=== PATIENT | female | born 1965 | race Caucasian/White ===

== ENCOUNTER → 2017-05-18 | Outpatient (CLI) | payer OTHER ==
[~2017-05-18] MED LIST: BACTRIM DS 8001 TA1 PO; LEVOTHYROXIN0.075 M1 PO; NEXIUM40 MG PO; NORCO 325 MG-51 TAB PO; TOPAMAX25 M1 PO; ULTRAM50 MG PO
[2017-05-18 17:07] LABS: FREE T4 1.24 ng/dl (0.76-1.46)
[2017-05-18 17:12] LABS: THYROID STIM HORMONE (HS) 0.968 uIU/ml (0.358-4.75)
== END | disposition home or self-care (01) ==
LOC: US 05-14 11:00 → LAB 15:54 → US 16:00
PROVIDERS: Internal Medicine Endocrinology, Diabetes & Metabolism
DX: E04.2 Nontoxic multinodular goiter (principal); R63.5 Abnormal weight gain; E89.0 Postprocedural hypothyroidism

== ENCOUNTER 2018-07-15 18:24 | Emergency (ER) | payer OTHER ==
[~2018-07-15] VITALS: Ht 154.9 cm; Wt 77.1 kg
[2018-07-15 18:25] VITALS: BP 165/91
[2018-07-15] MEDS ORDERED: PREDNISONE10 MG PO (18:31)
== END 2018-07-15 19:40 | disposition home or self-care (01) ==
LOC: ED 18:24
DX: M77.9 Enthesopathy, unspecified (principal); M79.631 Pain in right forearm; R03.0 Elevated blood-pressure reading, without diagnosis of hypertension

== ENCOUNTER 2018-07-27 15:07 | Emergency (ER) | payer OTHER ==
[~2018-07-27] VITALS: Ht 154.9 cm; Wt 81.6 kg
--- NOTE | ~2018-07-27 | EKG ---
[place], [place] ELECTROCARDIOGRAM REPORT NAME: VIKI PICKARD UNIT #: [id number] ROOM: DOCTOR: EPIPHANY DRAFT REPORT BIRTHDATE: [birth year] [facility] Test Date: 2018-07-27 Test Time: 15:28:07 Pat Name: VIKI PICKARD Department: Room: Gender: F Filler Mixer: ETHEL : 1965 Requested By: ROBER KENNEDY PA-C Order Number: [id number] Reading MD: Jose Pimentel MD Measurements Intervals [place] Rate: 83 P: 60 FL: 157 QRS: 11 QRSD: 78 T: 39 QT: 373 QTc: 439 Interpretive Statements Sinus rhythm Low voltage, precordial leads Baseline wander in lead(s) II,III,aVF,V4,V5 Electronically Signed On 07-27-2018 20:17:15 PST by Jose Pimentel MD CM:EKGRPT:ELECTROCARDIOGRAM REPORT [id number] ROBER KENNEDY PA-C EPIPHANY DRAFT REPORT ROBER KENNEDY PA-C
[~2018-07-27 15:07] MED LIST changes: +PREDNISONE10 MG PO
[2018-07-27 15:09] VITALS: BP 153/83
[2018-07-27 15:42] LABS: BASO # 0.1 10*3/uL (0.0-0.1); BASO % 0.7 % (0.0-1.0); EOS # 0.1 10*3/uL (0.0-0.4); EOS % 1.2 % (1.0-4.0); HEMATOCRIT 45.1 % (37.0-47.0); HEMOGLOBIN 15.4 g/dl (12.0-16.0); LYMPH # 2.3 10*3/uL (1.3-4.4); LYMPH % 29.8 % (27.0-41.0); MEAN CELL VOLUME 86.7 fl (81.0-99.0); MEAN CORPUSCULAR HGB 29.6 pg (27.0-31.0); MEAN CORPUSCULAR HGB CONC 34.1 g/dl (33.0-37.0); MEAN PLATELET VOLUME 11.5 fl (9.6-12.3); MONO # 0.5 10*3/uL (0.1-1.0); MONO % 7.1 % (3.0-9.0); NEUT # 4.6 10*3/uL (2.3-7.9); NEUT % 60.9 % (47.0-73.0); PLATELET COUNT AUTOMATED 204 10*3/uL (130-400); RED CELL DISTRI WIDTH 13.6 % (0-14.5); WHITE BLOOD COUNT 7.6 10*3/uL (4.8-10.8)
[2018-07-27 15:51] LABS: ACT PARTIAL THROMBO TIME 24.3 SECONDS (20.8-31.5)
[2018-07-27 16:03] LABS: BILIRUBIN NEGATIVE (NEGATIVE); BLOOD TRACE-INTACT (NEGATIVE); CLARITY CLEAR (CLEAR); COLOR YELLOW (YELLOW); GLUCOSE NEGATIVE (NEGATIVE); KETONE NEGATIVE (NEGATIVE); LEUKO ESTERASE NEGATIVE (NEGATIVE); NITRITE NEGATIVE (NEGATIVE); PH 7.5 (5.0-9.0); UROBILINOGEN 0.2 E.U./dl (0.2-1.0)
[2018-07-27 16:04] LABS: ALBUMIN 3.6 gm/dl (3.1-4.5); ALKALINE PHOSPHATASE 33 U/L (45-117); BUN 11 mg/dl (7-24); CHLORIDE 105 mmol/L (98-107); CREATININE 0.94 mg/dL (0.55-1.02); FREE T4 1.29 ng/dl (0.76-1.46); POTASSIUM 3.9 mmol/L (3.5-5.1); SGOT/AST 11 IU/L (3-35); SGPT/ALT 19 U/L (12-78); SODIUM 139 mmol/L (136-145); TOTAL PROTEIN 6.9 gm/dL (6.4-8.2)
[2018-07-27 16:10] LABS: TROPONIN I < 0.015 ng/ml (<0.045)
[2018-07-27 16:12] LABS: URINE AMPHETAMINES < 1000 (1000ng/ml); URINE BARBITURATES < 200 (200ng/ml); URINE BENZODIAZEPINES < 200 (200ng/ml); URINE CANNABINOIDS (THC) < 50 (50ng/ml); URINE COCAINE < 300 (300ng/ml); URINE METHADONE < 300 (300ng/ml); URINE OPIATES < 300 (300ng/ml)
[2018-07-27 16:17] LABS: URINE PHENCYCLIDINE < 25 (25ng/ml)
[2018-07-27 16:25] LABS: BACTERIA 3+; WBC 0-2 wbc/hpf (0-5)
== END 2018-07-27 17:45 | disposition home or self-care (01) ==
LOC: ED 15:07
PROVIDERS: Physician Assistant
DX: R00.2 Palpitations (principal); R42 Dizziness and giddiness; R07.0 Pain in throat; R03.0 Elevated blood-pressure reading, without diagnosis of hypertension; R53.83 Other fatigue; R79.1 Abnormal coagulation profile; E03.9 Hypothyroidism, unspecified; G43.909 Migraine, unspecified, not intractable, without status migrainosus; Z79.899 Other long term (current) drug therapy; Z90.89 Acquired absence of other organs

== ENCOUNTER → 2018-08-16 | Outpatient (CLI) | payer OTHER | LOC: RAD 16:22 | DX: Z12.31 Encounter for screening mammogram for malignant neoplasm of breast (principal) ==

== ENCOUNTER → 2018-08-31 | Outpatient (CLI) | payer OTHER ==
[2018-08-31 11:28] LABS: HEMATOCRIT 42.8 % (37.0-47.0); HEMOGLOBIN 14.8 g/dl (12.0-16.0); MEAN CELL VOLUME 86.1 fl (81.0-99.0); MEAN CORPUSCULAR HGB 29.8 pg (27.0-31.0); MEAN CORPUSCULAR HGB CONC 34.6 g/dl (33.0-37.0); MEAN PLATELET VOLUME 11.8 fl (9.6-12.3); RED BLOOD COUNT 4.97 10*6/uL (4.10-5.10); RED CELL DISTRI WIDTH 12.9 % (0-14.5); WHITE BLOOD COUNT 5.9 10*3/uL (4.8-10.8)
[2018-08-31 11:55] LABS: ALBUMIN 3.6 gm/dl (3.1-4.5); ALKALINE PHOSPHATASE 31 U/L (45-117); BUN 10 mg/dl (7-24); CHLORIDE 107 mmol/L (98-107); CHOLESTEROL 173 mg/dL (<200); CREATININE 0.91 mg/dL (0.55-1.02); HDL CHOLESTEROL 50 mg/dl (40-60); LDL CHOLESTEROL 92 mg/dL (9-159); POTASSIUM 3.9 mmol/L (3.5-5.1); SGOT/AST 12 IU/L (3-35); SGPT/ALT 15 U/L (12-78); SODIUM 142 mmol/L (136-145); TOTAL PROTEIN 7.2 gm/dL (6.4-8.2); TRIGLYCERIDES 153 mg/dl (<150); VLDL CHOLESTEROL 31 mg/dL (6-40)
[2018-08-31 12:17] LABS: FREE T4 1.43 ng/dl (0.76-1.46)
[2018-08-31 12:44] LABS: VITAMIN D, 25-HYDROXY 68.5 ng/mL (30-100)
== END | disposition home or self-care (01) ==
LOC: LAB 10:55 → MAMMO 11:30
PROVIDERS: Physician Assistant
DX: R92.2 Inconclusive mammogram (principal); E03.9 Hypothyroidism, unspecified; E53.9 Vitamin B deficiency, unspecified; E55.9 Vitamin D deficiency, unspecified

== ENCOUNTER → 2018-09-29 | Outpatient (CLI) | payer OTHER | END | disposition home or self-care (01) | LOC: RAD 17:04 | DX: M79.601 Pain in right arm (principal) ==

== ENCOUNTER → 2018-10-04 | Outpatient (CLI) | payer OTHER | END | disposition home or self-care (01) | LOC: US 12:01 → RAD 13:00 | DX: M79.601 Pain in right arm (principal); E04.1 Nontoxic single thyroid nodule; R92.8 Other abnormal and inconclusive findings on diagnostic imaging of breast ==

== ENCOUNTER → 2018-10-20 | Day surgery (SDC) | payer OTHER | END | disposition home or self-care (01) | LOC: SDC 03:21 | PROVIDERS: Internal Medicine Endocrinology, Diabetes & Metabolism | DX: E04.2 Nontoxic multinodular goiter (principal); Z98.890 Other specified postprocedural states; Z79.899 Other long term (current) drug therapy; Z80.41 Family history of malignant neoplasm of ovary ==

== ENCOUNTER → 2019-04-20 | Outpatient (CLI) | payer OTHER | END | disposition home or self-care (01) | LOC: US 10:00 | DX: E04.1 Nontoxic single thyroid nodule (principal); E89.0 Postprocedural hypothyroidism ==

== ENCOUNTER → 2019-09-18 | Outpatient (CLI) | payer OTHER | END | disposition home or self-care (01) | LOC: US 14:41 | DX: E04.1 Nontoxic single thyroid nodule (principal) ==

== ENCOUNTER → 2020-04-16 | Outpatient (CLI) | payer OTHER | END | disposition home or self-care (01) | LOC: RAD 14:36 | DX: M25.612 Stiffness of left shoulder, not elsewhere classified (principal); M25.512 Pain in left shoulder ==

== ENCOUNTER → 2020-07-03 | Outpatient (CLI) | payer OTHER | END | disposition home or self-care (01) | LOC: MAMMO 12:50 | PROVIDERS: ATTEND Nurse Practitioner Women's Health | DX: D24.9 Benign neoplasm of unspecified breast (principal); N63.10 Unspecified lump in the right breast, unspecified quadrant; R92.2 Inconclusive mammogram ==

== ENCOUNTER → 2020-08-21 | Outpatient (CLI) | payer OTHER | END | disposition home or self-care (01) | LOC: RAD 00:28 | PROVIDERS: ATTEND Internal Medicine Endocrinology, Diabetes & Metabolism | DX: Z13.820 Encounter for screening for osteoporosis (principal); E04.2 Nontoxic multinodular goiter; M85.869 Other specified disorders of bone density and structure, unspecified lower leg; Z78.0 Asymptomatic menopausal state ==

== ENCOUNTER → 2020-10-21 | Outpatient (CLI) | payer OTHER | END | disposition home or self-care (01) | LOC: RAD 14:55 | PROVIDERS: ATTEND Nurse Practitioner Family | DX: M25.551 Pain in right hip (principal) ==

== ENCOUNTER → 2021-07-08 | Outpatient (CLI) | payer OTHER | END | disposition home or self-care (01) | LOC: US 06-17 14:00 → MAMMO 06-17 14:00 → US 06-17 14:30 → MAMMO 13:00 | PROVIDERS: ATTEND Nurse Practitioner Women's Health | DX: N64.4 Mastodynia (principal); D24.1 Benign neoplasm of right breast ==

== ENCOUNTER → 2021-08-11 | Outpatient (CLI) | payer OTHER | END | disposition home or self-care (01) | LOC: US 16:00 | PROVIDERS: ATTEND Internal Medicine Endocrinology, Diabetes & Metabolism | DX: E04.2 Nontoxic multinodular goiter (principal) ==

== ENCOUNTER → 2022-06-15 | Outpatient (CLI) | payer OTHER | END | disposition home or self-care (01) | LOC: RAD 16:46 | PROVIDERS: ATTEND Nurse Practitioner Family | DX: M43.8X6 Other specified deforming dorsopathies, lumbar region (principal); M47.817 Spondylosis without myelopathy or radiculopathy, lumbosacral region; M51.34 Other intervertebral disc degeneration, thoracic region; M48.061 Spinal stenosis, lumbar region without neurogenic claudication; G43.919 Migraine, unspecified, intractable, without status migrainosus; K59.00 Constipation, unspecified; Z90.49 Acquired absence of other specified parts of digestive tract ==

== ENCOUNTER → 2022-10-05 | Outpatient (CLI) | payer OTHER | END | disposition home or self-care (01) | LOC: RAD 09-04 10:30 | PROVIDERS: ATTEND Nurse Practitioner Family | DX: Z13.820 Encounter for screening for osteoporosis (principal); M85.89 Other specified disorders of bone density and structure, multiple sites ==

== ENCOUNTER → 2022-10-07 | Outpatient (CLI) | payer OTHER | END | disposition home or self-care (01) | LOC: MAMMO 02:34 → US 09:30 | PROVIDERS: ATTEND Nurse Practitioner Family | DX: Z12.31 Encounter for screening mammogram for malignant neoplasm of breast (principal); E04.2 Nontoxic multinodular goiter; N64.1 Fat necrosis of breast ==

== ENCOUNTER → 2023-04-22 | Outpatient (CLI) | payer OTHER | END | disposition home or self-care (01) | LOC: CARD 15:40 | PROVIDERS: ATTEND Nurse Practitioner Family | DX: R03.0 Elevated blood-pressure reading, without diagnosis of hypertension (principal); R00.2 Palpitations ==

== ENCOUNTER → 2023-05-19 | Outpatient (CLI) | payer OTHER ==
[2023-05-19 16:21] LABS: BASO # 0.1 10*3/uL (0.0-0.1); BASO % 0.8 % (0.0-1.0); EOS # 0.1 10*3/uL (0.0-0.4); EOS % 1.4 % (1.0-4.0); HEMATOCRIT 42.8 % (37.0-47.0); LYMPH # 1.9 10*3/uL (1.3-4.4); LYMPH % 31.8 % (27.0-41.0); MEAN CELL VOLUME 84.6 fl (81.0-99.0); MEAN CORPUSCULAR HGB 28.9 pg (27.0-31.0); MEAN CORPUSCULAR HGB CONC 34.1 g/dl (33.0-37.0); MEAN PLATELET VOLUME 11.5 fl (9.6-12.3); MONO # 0.5 10*3/uL (0.1-1.0); MONO % 8.3 % (3.0-9.0); NEUT # 3.4 10*3/uL (2.3-7.9); NEUT % 57.5 % (47.0-73.0); PLATELET COUNT AUTOMATED 234 10*3/uL (130-400); RED BLOOD COUNT 5.06 10*6/uL (4.10-5.10); RED CELL DISTRI WIDTH 13.5 % (0-14.5); WHITE BLOOD COUNT 5.9 10*3/uL (4.8-10.8)
== END | disposition home or self-care (01) ==
LOC: LAB 16:04
PROVIDERS: ATTEND Nurse Practitioner Family
DX: Z51.81 Encounter for therapeutic drug level monitoring (principal); E89.0 Postprocedural hypothyroidism; M54.81 Occipital neuralgia; G43.919 Migraine, unspecified, intractable, without status migrainosus; R13.10 Dysphagia, unspecified

== ENCOUNTER → 2023-06-01 | Outpatient (CLI) | payer OTHER | END | disposition home or self-care (01) | LOC: RAD/SH 04-22 01:22 | PROVIDERS: ATTEND Nurse Practitioner Family | DX: R13.10 Dysphagia, unspecified (principal) ==

== ENCOUNTER → 2023-09-17 | Outpatient (CLI) | payer OTHER ==
[~2023-09-17] MED LIST changes: -LEVOTHYROXIN0.075 M1 PO; +LEVOTHYROXINE50 MCG PO; +PROPRANOLOL HYD10 MG PO
[2023-09-17 10:10] LABS: BASO % 0.8 % (0.0-1.0); EOS # 0.1 10*3/uL (0.0-0.4); EOS % 1.5 % (1.0-4.0); HEMATOCRIT 43.6 % (37.0-47.0); LYMPH # 1.5 10*3/uL (1.3-4.4); LYMPH % 28.4 % (27.0-41.0); MEAN CORPUSCULAR HGB 28.9 pg (27.0-31.0); MEAN CORPUSCULAR HGB CONC 33.3 g/dl (33.0-37.0); MEAN PLATELET VOLUME 11.7 fl (9.6-12.3); MONO # 0.4 10*3/uL (0.1-1.0); MONO % 8.3 % (3.0-9.0); NEUT # 3.2 10*3/uL (2.3-7.9); NEUT % 60.8 % (47.0-73.0); PLATELET COUNT AUTOMATED 220 10*3/uL (130-400); RED BLOOD COUNT 5.01 10*6/uL (4.10-5.10); RED CELL DISTRI WIDTH 13.2 % (0-14.5); WHITE BLOOD COUNT 5.3 10*3/uL (4.8-10.8)
[2023-09-17 11:05] LABS: ALKALINE PHOSPHATASE 30 U/L (46-116); BUN 13 mg/dl (9-23); CHLORIDE 108 mmol/L (98-107); CHOLESTEROL 200 mg/dL (<200); LDL CHOLESTEROL 125 mg/dL (9-159); POTASSIUM 4.2 mmol/L (3.4-5.1); SGPT/ALT 13 U/L (5-49); TOTAL PROTEIN 6.8 gm/dL (6.0-8.0); TRIGLYCERIDES 114 mg/dl (<150)
== END | disposition home or self-care (01) ==
LOC: LAB 09:56
PROVIDERS: ATTEND Nurse Practitioner Family
DX: E78.1 Pure hyperglyceridemia (principal); R00.2 Palpitations; E03.9 Hypothyroidism, unspecified

== ENCOUNTER → 2023-10-11 | Outpatient (CLI) | payer OTHER | LOC: MAMMO 00:25 | PROVIDERS: ATTEND Nurse Practitioner Family | DX: Z12.31 Encounter for screening mammogram for malignant neoplasm of breast (principal); R92.323 Mammographic fibroglandular density, bilateral breasts ==

== ENCOUNTER → 2023-11-23 | Outpatient (CLI) | payer OTHER ==
[2023-11-23 07:33] LABS: BASO # 0.1 10*3/uL (0.0-0.1); BASO % 1.1 % (0.0-1.0); EOS # 0.1 10*3/uL (0.0-0.4); EOS % 2.1 % (1.0-4.0); HEMATOCRIT 44.3 % (37.0-47.0); LYMPH # 1.5 10*3/uL (1.3-4.4); LYMPH % 28.4 % (27.0-41.0); MEAN CELL VOLUME 84.9 fl (81.0-99.0); MEAN CORPUSCULAR HGB 28.7 pg (27.0-31.0); MEAN CORPUSCULAR HGB CONC 33.9 g/dl (33.0-37.0); MEAN PLATELET VOLUME 11.6 fl (9.6-12.3); MONO # 0.5 10*3/uL (0.1-1.0); MONO % 8.4 % (3.0-9.0); NEUT # 3.2 10*3/uL (2.3-7.9); NEUT % 59.8 % (47.0-73.0); PLATELET COUNT AUTOMATED 215 10*3/uL (130-400); RED BLOOD COUNT 5.22 10*6/uL (4.10-5.10); RED CELL DISTRI WIDTH 13.3 % (0-14.5); WHITE BLOOD COUNT 5.4 10*3/uL (4.8-10.8)
[2023-11-23 08:07] LABS: ALKALINE PHOSPHATASE 35 U/L (46-116); BUN 16 mg/dl (9-23); CHLORIDE 106 mmol/L (98-107); CHOLESTEROL 219 mg/dL (<200); LDL CHOLESTEROL 144 mg/dL (9-159); POTASSIUM 3.8 mmol/L (3.4-5.1); SGPT/ALT 11 U/L (5-49); TRIGLYCERIDES 131 mg/dl (<150)
== END | disposition home or self-care (01) ==
LOC: LAB 07:02
PROVIDERS: ATTEND Nurse Practitioner Family
DX: Z12.31 Encounter for screening mammogram for malignant neoplasm of breast (principal); R63.5 Abnormal weight gain; E03.9 Hypothyroidism, unspecified; G43.909 Migraine, unspecified, not intractable, without status migrainosus

== ENCOUNTER → 2024-01-25 | Outpatient (CLI) | payer OTHER | END | disposition home or self-care (01) | LOC: LAB 15:43 | PROVIDERS: ATTEND Nurse Practitioner Family | DX: I10 Essential (primary) hypertension (principal); R19.5 Other fecal abnormalities; Z80.41 Family history of malignant neoplasm of ovary; Z80.0 Family history of malignant neoplasm of digestive organs ==

== ENCOUNTER → 2024-04-17 | Outpatient (CLI) | payer OTHER ==
[2024-04-17 16:11] LABS: POTASSIUM 3.1 mmol/L (3.4-5.1)
== END | disposition home or self-care (01) ==
LOC: LAB 15:13
PROVIDERS: ATTEND Nurse Practitioner Family
DX: I10 Essential (primary) hypertension (principal)

== ENCOUNTER → 2024-04-18 | Outpatient (CLI) | payer OTHER ==
[2024-04-18 17:27] LABS: BILIRUBIN Negative (Negative); BLOOD 1+ (Negative); CLARITY Clear (Clear); COLOR Yellow (Yellow); GLUCOSE Negative (Negative); KETONE Negative (Negative); LEUKO ESTERASE 2+ (Negative); NITRITE Negative (Negative); SPECIFIC GRAVITY <= 1.005 (1.001-1.030)
[2024-04-18 17:56] LABS: BACTERIA TRACE; RBC 0-2 rbc/hpf (0-2); WBC 31-40 wbc/hpf (0-5)
== END | disposition home or self-care (01) ==
LOC: LAB 17:01
PROVIDERS: ATTEND Nurse Practitioner Family
DX: I10 Essential (primary) hypertension (principal); R30.0 Dysuria; R79.89 Other specified abnormal findings of blood chemistry

== ENCOUNTER → 2024-04-25 | Outpatient (CLI) | payer OTHER ==
[2024-04-25 17:24] LABS: POTASSIUM 3.7 mmol/L (3.4-5.1)
== END | disposition home or self-care (01) ==
LOC: LAB 16:49
PROVIDERS: ATTEND Nurse Practitioner Family
DX: R30.0 Dysuria (principal); R79.89 Other specified abnormal findings of blood chemistry; I10 Essential (primary) hypertension

== ENCOUNTER → 2024-05-03 | Outpatient (CLI) | payer OTHER ==
[2024-05-03 16:03] LABS: BASO # 0.1 10*3/uL (0.0-0.1); EOS # 0.1 10*3/uL (0.0-0.4); EOS % 1.4 % (1.0-4.0); HEMATOCRIT 39.1 % (37.0-47.0); LYMPH # 1.9 10*3/uL (1.3-4.4); LYMPH % 33.8 % (27.0-41.0); MEAN CELL VOLUME 88.3 fl (81.0-99.0); MEAN CORPUSCULAR HGB 30.2 pg (27.0-31.0); MEAN CORPUSCULAR HGB CONC 34.3 g/dl (33.0-37.0); MEAN PLATELET VOLUME 10.8 fl (9.6-12.3); MONO # 0.5 10*3/uL (0.1-1.0); MONO % 8.4 % (3.0-9.0); NEUT # 3.2 10*3/uL (2.3-7.9); NEUT % 55.2 % (47.0-73.0); PLATELET COUNT AUTOMATED 233 10*3/uL (130-400); RED BLOOD COUNT 4.43 10*6/uL (4.10-5.10); RED CELL DISTRI WIDTH 14.5 % (0-14.5); WHITE BLOOD COUNT 5.7 10*3/uL (4.8-10.8)
[2024-05-03 16:24] LABS: ALKALINE PHOSPHATASE 38 U/L (46-116); BUN 13 mg/dl (9-23); CHLORIDE 103 mmol/L (98-107); CHOLESTEROL 209 mg/dL (<200); LDL CHOLESTEROL 109 mg/dL (9-159); POTASSIUM 3.5 mmol/L (3.4-5.1); SGPT/ALT 12 U/L (5-49); TOTAL PROTEIN 6.6 gm/dL (6.0-8.0); TRIGLYCERIDES 276 mg/dl (<150)
== END | disposition home or self-care (01) ==
LOC: LAB 15:46
PROVIDERS: ATTEND Nurse Practitioner Family
DX: I10 Essential (primary) hypertension (principal)

== ENCOUNTER → 2024-06-01 | Outpatient (CLI) | payer OTHER | END | disposition home or self-care (01) | LOC: RESCLI 03:37 | PROVIDERS: ATTEND Student in an Organized Health Care Education/Training Program | DX: E66.9 Obesity, unspecified (principal); E03.9 Hypothyroidism, unspecified; E55.9 Vitamin D deficiency, unspecified; I10 Essential (primary) hypertension; M85.869 Other specified disorders of bone density and structure, unspecified lower leg; Z98.890 Other specified postprocedural states; Z79.899 Other long term (current) drug therapy; Z68.34 Body mass index [BMI] 34.0-34.9, adult ==

== ENCOUNTER 2024-06-30 11:31 | Emergency (ER) | payer OTHER ==
[~2024-06-30] VITALS: Ht 162.5 cm; Wt 78.9 kg
[2024-06-30 11:37] VITALS: BP 106/60
[2024-06-30] MEDS ORDERED: HYDROCHLOROTH12.5 M3 PO (11:38)
[2024-06-30] MEDS ORDERED: K-TAB20 MEQ PO (11:38)
[2024-06-30] MEDS ORDERED: Acetaminophen/Oxycodone 5 MG/325 MG TABLET PO ONE (11:45)
[2024-06-30] MEDS ORDERED: HYDROCODONE-AC1 EAC1 PO (12:38)
== END 2024-06-30 12:48 | disposition home or self-care (01) ==
LOC: ED 11:31
DX: S62.307A Unspecified fracture of fifth metacarpal bone, left hand, initial encounter for closed fracture (principal); S62.615A Displaced fracture of proximal phalanx of left ring finger, initial encounter for closed fracture; Z91.018 Allergy to other foods; Z79.899 Other long term (current) drug therapy; Z98.890 Other specified postprocedural states; Z98.51 Tubal ligation status; Z90.49 Acquired absence of other specified parts of digestive tract; W18.09XA Striking against other object with subsequent fall, initial encounter; Y93.89 Activity, other specified; Y92.89 Other specified places as the place of occurrence of the external cause; Y99.8 Other external cause status

== ENCOUNTER → 2024-08-04 | Outpatient (CLI) | payer OTHER ==
[~2024-08-04] MED LIST changes: +HYDROCHLOROTH12.5 M3 PO; +HYDROCODONE-AC1 EAC1 PO; +K-TAB20 MEQ PO
[2024-08-04 09:36] LABS: BASO # 0.1 10*3/uL (0.0-0.1); BASO % 0.8 % (0.0-1.0); EOS # 0.1 10*3/uL (0.0-0.4); EOS % 2.1 % (1.0-4.0); HEMATOCRIT 42.3 % (37.0-47.0); MEAN CELL VOLUME 86.5 fl (81.0-99.0); MEAN CORPUSCULAR HGB CONC 33.6 g/dl (33.0-37.0); MEAN PLATELET VOLUME 12.7 fl (9.6-12.3); MONO # 0.6 10*3/uL (0.1-1.0); MONO % 9.4 % (3.0-9.0); NEUT # 3.6 10*3/uL (2.3-7.9); NEUT % 59.9 % (47.0-73.0); PLATELET COUNT AUTOMATED 207 10*3/uL (130-400); RED BLOOD COUNT 4.89 10*6/uL (4.10-5.10); RED CELL DISTRI WIDTH 13.4 % (0-14.5); WHITE BLOOD COUNT 6.1 10*3/uL (4.8-10.8)
[2024-08-04 09:46] LABS: URINE CREATININE RANDOM 151.15 mg/dL
[2024-08-04 09:56] LABS: ALKALINE PHOSPHATASE 39 U/L (46-116); BUN 18 mg/dl (9-23); CHLORIDE 101 mmol/L (98-107); CHOLESTEROL 193 mg/dL (<200); LDL CHOLESTEROL 127 mg/dL (9-159); POTASSIUM 3.3 mmol/L (3.4-5.1); SGPT/ALT 11 U/L (5-49); TOTAL PROTEIN 7.4 gm/dL (6.0-8.0); TRIGLYCERIDES 92 mg/dl (<150)
== END | disposition home or self-care (01) ==
LOC: LAB 07:01
PROVIDERS: ATTEND Nurse Practitioner Family
DX: I10 Essential (primary) hypertension (principal); R73.01 Impaired fasting glucose; E03.9 Hypothyroidism, unspecified; E66.9 Obesity, unspecified

== ENCOUNTER 2024-09-04 16:02 | Inpatient (IN) | payer OTHER ==
[~2024-09-04] VITALS: Ht 154.9 cm; Wt 81.0 kg
[2024-09-04 16:12] VITALS: BP 125/80
[2024-09-04] MEDS ORDERED: Ondansetron Hydrochloride 4 MG/2 ML VIAL IV ONE (16:20)
[2024-09-04] MEDS ORDERED: SODIUM CHLORIDE 0.9% 1,000 ML IV ONE (16:20)
[2024-09-04] MEDS ORDERED: MORPHINE Sulfate 2 MG/ML SYR IV ONE (16:20)
[2024-09-04] MEDS ORDERED: IOHEXOL 300 MG/ML 100 ML VIAL IV ONE (16:25)
[2024-09-04 16:46] LABS: BASO # 0.1 10*3/uL (0.0-0.1); BASO % 0.6 % (0.0-1.0); EOS # 0.2 10*3/uL (0.0-0.4); EOS % 1.8 % (1.0-4.0); HEMATOCRIT 42.4 % (37.0-47.0); MEAN CELL VOLUME 85.8 fl (81.0-99.0); MEAN CORPUSCULAR HGB 28.9 pg (27.0-31.0); MEAN CORPUSCULAR HGB CONC 33.7 g/dl (33.0-37.0); MEAN PLATELET VOLUME 12.1 fl (9.6-12.3); MONO # 0.8 10*3/uL (0.1-1.0); MONO % 8.5 % (3.0-9.0); NEUT # 5.8 10*3/uL (2.3-7.9); NEUT % 65.3 % (47.0-73.0); PLATELET COUNT AUTOMATED 239 10*3/uL (130-400); RED BLOOD COUNT 4.94 10*6/uL (4.10-5.10); RED CELL DISTRI WIDTH 13.6 % (0-14.5); WHITE BLOOD COUNT 8.9 10*3/uL (4.8-10.8)
[2024-09-04 17:07] LABS: BUN 13 mg/dl (9-23); CHLORIDE 98 mmol/L (98-107); POTASSIUM 3.4 mmol/L (3.4-5.1)
[2024-09-04 18:14] LABS: BILIRUBIN Negative (Negative); BLOOD Negative (Negative); CLARITY Clear (Clear); COLOR Yellow (Yellow); GLUCOSE Negative (Negative); KETONE Negative (Negative); LEUKO ESTERASE Negative (Negative); NITRITE Negative (Negative); SPECIFIC GRAVITY <= 1.005 (1.001-1.030); UROBILINOGEN 0.2 E.U./dl (0.0-1.0)
[2024-09-04 18:52] LABS: EPITHELIAL CELLS 0-2; WBC 0-2 wbc/hpf (0-5)
[2024-09-04 18:53] LABS: RBC 0-2 rbc/hpf (0-2)
[2024-09-04] MEDS ORDERED: Piperacillin Sodium/Tazobact 50 ML IV ONE (19:25)
[2024-09-04] MEDS ORDERED: Acetaminophen/Hydrocodone 5 MG/325 MG TABLET PO PRN (20:40)
[2024-09-04] MEDS ORDERED: Magnesium Hydroxide 30 ML UDC PO PRN (20:40)
[2024-09-04] MEDS ORDERED: ACETAMINOPHEN 650 MG SUPP R PRN (20:40)
[2024-09-04] MEDS ORDERED: TEMAZEPAM 15 MG CAP PO PRN (20:40)
[2024-09-04] MEDS ORDERED: BISACODYL 10 MG SUPP R PRN (20:40)
[2024-09-04] MEDS ORDERED: BISACODYL 5 MG TAB PO PRN (20:40)
[2024-09-04] MEDS ORDERED: Ondansetron Hydrochloride 4 MG/2 ML VIAL IV PRN (20:40)
[2024-09-04] MEDS ORDERED: ACETAMINOPHEN 325 MG TAB PO PRN (20:40)
[2024-09-04] MEDS ORDERED: SODIUM CHLORIDE 0.9% 500 ML IV SCH (20:50)
[2024-09-04 20:51] VITALS: BP 114/72
[2024-09-04] MEDS ORDERED: MORPHINE Sulfate 2 MG/ML SYR IV PRN (21:20)
[2024-09-05] VITALS (9 sets, daily range): BP systolic 102–119; BP diastolic 55–69
[2024-09-05] MEDS ORDERED: Piperacillin Sodium/Tazobact 50 ML IV SCH (02:00)
[2024-09-05] MEDS ORDERED: Levothyroxine Sodium 50 MCG TAB PO SCH (06:00)
[2024-09-05 06:36] LABS: BASO % 0.7 % (0.0-1.0); EOS # 0.2 10*3/uL (0.0-0.4); EOS % 2.6 % (1.0-4.0); HEMATOCRIT 36.2 % (37.0-47.0); MEAN CELL VOLUME 85.8 fl (81.0-99.0); MEAN CORPUSCULAR HGB 29.4 pg (27.0-31.0); MEAN CORPUSCULAR HGB CONC 34.3 g/dl (33.0-37.0); MEAN PLATELET VOLUME 12.3 fl (9.6-12.3); MONO # 0.5 10*3/uL (0.1-1.0); MONO % 9.2 % (3.0-9.0); NEUT # 3.3 10*3/uL (2.3-7.9); NEUT % 56.7 % (47.0-73.0); PLATELET COUNT AUTOMATED 180 10*3/uL (130-400); RED BLOOD COUNT 4.22 10*6/uL (4.10-5.10); RED CELL DISTRI WIDTH 13.9 % (0-14.5); WHITE BLOOD COUNT 5.8 10*3/uL (4.8-10.8)
[2024-09-05 06:47] LABS: ALKALINE PHOSPHATASE 30 U/L (46-116); BUN 9 mg/dl (9-23); CHLORIDE 104 mmol/L (98-107); POTASSIUM 3.3 mmol/L (3.4-5.1); SGPT/ALT 8 U/L (5-49); TOTAL PROTEIN 6.1 gm/dL (6.0-8.0)
[2024-09-05] MEDS ORDERED: Enoxaparin Sodium 40 MG/0.4 ML SYR SC SCH (10:00)
[2024-09-05] MEDS ORDERED: Propranolol Hydrochloride 10 MG TAB PO SCH (10:00)
[2024-09-05] MEDS ORDERED: POTASSIUM CHLORIDE 20 MEQ TAB PO SCH (10:00)
[2024-09-05] MEDS ORDERED: HYDROCHLOROTHIAZIDE 12.5 MG CAP PO SCH (10:00)
[2024-09-06] VITALS: BP 100/52
[2024-09-06 07:05] LABS: BASO % 0.9 % (0.0-1.0); EOS # 0.2 10*3/uL (0.0-0.4); EOS % 3.8 % (1.0-4.0); HEMATOCRIT 38.9 % (37.0-47.0); MEAN CELL VOLUME 86.1 fl (81.0-99.0); MEAN CORPUSCULAR HGB CONC 33.7 g/dl (33.0-37.0); MONO # 0.4 10*3/uL (0.1-1.0); MONO % 9.3 % (3.0-9.0); NEUT # 2.3 10*3/uL (2.3-7.9); NEUT % 51.4 % (47.0-73.0); PLATELET COUNT AUTOMATED 208 10*3/uL (130-400); RED BLOOD COUNT 4.52 10*6/uL (4.10-5.10); RED CELL DISTRI WIDTH 13.5 % (0-14.5); WHITE BLOOD COUNT 4.5 10*3/uL (4.8-10.8)
[2024-09-06 07:33] LABS: POTASSIUM 3.7 mmol/L (3.4-5.1)
[2024-09-06 08:00] VITALS: BP 121/80
[2024-09-06 12:00] VITALS: BP 129/81
[2024-09-06] MEDS ORDERED: AMOX-CLAV 875-1 EACH PO (13:18)
== END 2024-09-06 15:19 | disposition home or self-care (01) | DRG 392 ==
LOC: ED 16:02 → EDHOLD 20:31 → 4E 09-05 16:28
PROVIDERS: Emergency Medicine; Student in an Organized Health Care Education/Training Program; ADMIT Student in an Organized Health Care Education/Training Program; ATTEND Student in an Organized Health Care Education/Training Program
DX: K57.32 Diverticulitis of large intestine without perforation or abscess without bleeding (principal); E44.0 Moderate protein-calorie malnutrition; E87.6 Hypokalemia; E66.811 Obesity, class 1; E89.0 Postprocedural hypothyroidism; I12.9 Hypertensive chronic kidney disease with stage 1 through stage 4 chronic kidney disease, or unspecified chronic kidney disease; N18.31 Chronic kidney disease, stage 3a; Z88.8 Allergy status to other drugs, medicaments and biological substances; Z98.51 Tubal ligation status; Z93.0 Tracheostomy status; Z82.49 Family history of ischemic heart disease and other diseases of the circulatory system; Z82.3 Family history of stroke; Z80.41 Family history of malignant neoplasm of ovary; Z68.33 Body mass index [BMI] 33.0-33.9, adult

== ENCOUNTER → 2024-11-28 | Outpatient (CLI) | payer OTHER ==
[~2024-11-28] MED LIST changes: +AMOX-CLAV 875-1 EACH PO
[2024-11-28 17:17] LABS: BASO % 0.7 % (0.0-1.0); EOS # 0.1 10*3/uL (0.0-0.4); EOS % 1.7 % (1.0-4.0); MEAN CORPUSCULAR HGB 28.4 pg (27.0-31.0); MEAN CORPUSCULAR HGB CONC 33.8 g/dl (33.0-37.0); MEAN PLATELET VOLUME 11.8 fl (9.6-12.3); MONO # 0.6 10*3/uL (0.1-1.0); MONO % 10.6 % (3.0-9.0); NEUT # 3.1 10*3/uL (2.3-7.9); NEUT % 51.7 % (47.0-73.0); PLATELET COUNT AUTOMATED 222 10*3/uL (130-400); RED CELL DISTRI WIDTH 13.2 % (0-14.5); WHITE BLOOD COUNT 5.9 10*3/uL (4.8-10.8)
[2024-11-28 17:49] LABS: ALKALINE PHOSPHATASE 30 U/L (46-116); BUN 25 mg/dl (9-23); CHLORIDE 100 mmol/L (98-107); CHOLESTEROL 206 mg/dL (<200); LDL CHOLESTEROL 128 mg/dL (9-159); POTASSIUM 3.1 mmol/L (3.4-5.1); SGPT/ALT 15 U/L (5-49); TOTAL PROTEIN 7.3 gm/dL (6.0-8.0); TRIGLYCERIDES 167 mg/dl (<150); VITAMIN D, 25-HYDROXY 88.7 ng/mL (30-100)
== END | disposition home or self-care (01) ==
LOC: LAB 16:26
PROVIDERS: ATTEND Nurse Practitioner Family
DX: Z13.1 Encounter for screening for diabetes mellitus (principal); Z13.220 Encounter for screening for lipoid disorders; I10 Essential (primary) hypertension; E03.9 Hypothyroidism, unspecified; E55.9 Vitamin D deficiency, unspecified; E53.8 Deficiency of other specified B group vitamins; E66.9 Obesity, unspecified

== ENCOUNTER → 2024-12-08 | Outpatient (CLI) | payer OTHER ==
[2024-12-08 17:49] LABS: BUN 23 mg/dl (9-23); CHLORIDE 99 mmol/L (98-107); POTASSIUM 3.4 mmol/L (3.4-5.1)
== END | disposition home or self-care (01) ==
LOC: LAB 15:33
PROVIDERS: ATTEND Nurse Practitioner Family
DX: E87.6 Hypokalemia (principal)

== ENCOUNTER → 2025-01-09 | Outpatient (CLI) | payer OTHER | END | disposition home or self-care (01) | LOC: MAMMO 15:26 → US 16:00 | PROVIDERS: ATTEND Nurse Practitioner Family | DX: Z12.31 Encounter for screening mammogram for malignant neoplasm of breast (principal); E04.1 Nontoxic single thyroid nodule; Z76.89 Persons encountering health services in other specified circumstances ==

== ENCOUNTER → 2025-07-03 | Outpatient (CLI) | payer OTHER ==
[2025-07-03 16:20] LABS: BASO # 0.1 10*3/uL (0.0-0.1); BASO % 0.8 % (0.0-1.0); EOS # 0.1 10*3/uL (0.0-0.4); EOS % 1.7 % (1.0-4.0); MEAN CELL VOLUME 86.0 fl (81.0-99.0); MEAN CORPUSCULAR HGB 29.4 pg (27.0-31.0); MEAN PLATELET VOLUME 11.2 fl (9.6-12.3); MONO # 0.7 10*3/uL (0.1-1.0); MONO % 9.9 % (3.0-9.0); NEUT # 3.4 10*3/uL (2.3-7.9); NEUT % 51.0 % (47.0-73.0); NUCLEATED RED BLOOD CELL 0.0 % (0.0-0.0); NUCLEATED RED BLOOD CELL 0.0 10*3/uL (0.0-0.0); PLATELET COUNT AUTOMATED 216 10*3/uL (130-400); RED CELL DISTRI WIDTH 13.2 % (0-14.5)
[2025-07-03 17:01] LABS: BUN 15 mg/dl (9-23); LDL CHOLESTEROL 130 mg/dL (9-159); SGPT/ALT 12 U/L (5-49)
== END | disposition home or self-care (01) ==
LOC: LAB 15:58
PROVIDERS: ATTEND Nurse Practitioner Family
DX: I10 Essential (primary) hypertension (principal); E87.6 Hypokalemia; E03.9 Hypothyroidism, unspecified; K57.90 Diverticulosis of intestine, part unspecified, without perforation or abscess without bleeding; E53.8 Deficiency of other specified B group vitamins; E78.2 Mixed hyperlipidemia; M85.80 Other specified disorders of bone density and structure, unspecified site; Z12.31 Encounter for screening mammogram for malignant neoplasm of breast; E04.1 Nontoxic single thyroid nodule; Z76.89 Persons encountering health services in other specified circumstances

== ENCOUNTER → 2025-07-19 | Outpatient (CLI) | payer OTHER | END | disposition home or self-care (01) | LOC: ZRHCWE 16:42 | PROVIDERS: ATTEND Nurse Practitioner Family | DX: R50.9 Fever, unspecified (principal) ==

== ENCOUNTER → 2025-07-24 | Outpatient (CLI) | payer OTHER | END | disposition home or self-care (01) | LOC: RAD 08:23 | PROVIDERS: ATTEND Nurse Practitioner Family | DX: M85.851 Other specified disorders of bone density and structure, right thigh (principal) ==